=== PATIENT | male | born 1995 | race Two or more races ===

== ENCOUNTER 2021-11-08 12:56 | Emergency (ER) | payer OTHER ==
[~2021-11-08] VITALS: Ht 177.8 cm; Wt 72.6 kg
[2021-11-08] MEDS ORDERED: LIDOCAINE 1% (LOCAL ANESTH.) PF 5ml SDV ID ONE (13:15)
[2021-11-08 15:13] LABS: Basophils # (auto) 0.1 10 ^3/uL (0-0.2); Basophils % (auto) 1.3 % (0.0-2.0); Eosinophils # (auto) 0 10 ^3/uL (0-0.8); Eosinophils % (auto) 0.5 % (0.0-7.0); Hematocrit 46.5 % (41.0-53.0); Lymphocytes # (auto) 1.3 10 ^3/uL (0.4-5.4); Mean Corpuscular Hemoglobin 32.8 pg (28.0-32.0); Mean Corpuscular Hgb Conc. 34.5 g/dL (32.0-36.0); Monocytes # (auto) 0.5 10 ^3/uL (0-1.3); Monocytes % (auto) 6.9 % (0.0-12.0); Neutrophils # (auto) 4.9 10 ^3/uL (1.6-8.6); Neutrophils % (auto) 72.3 % (37.0-80.0); Nucleated Red Blood Cells % 0.2 %; Red Blood Cells 4.89 10^6/uL (4.5-5.90); Red Cell Distribution Width 13.5 % (11.8-14.3); White Blood Cell 6.8 10^3/uL (4.4-10.8)
[2021-11-08 15:29] LABS: Albumin 4.3 g/dL (3.4-5.0); Anion Gap 8 (5-15); Blood Alcohol < 3.0 mg/dL (0-5); Blood Urea Nitrogen 15 mg/dL (7-18); Calcium 8.8 mg/dL (8.5-10.1); Carbon Dioxide 27 mmol/L (21-32); Chloride 102 mmol/L (98-107); Glucose 91 mg/dL (74-106); Potassium 4.3 mmol/L (3.5-5.1); Sodium 137 mmol/L (136-145)
[2021-11-08 15:31] LABS: Salicylate < 1.7 mg/dL (2.8-20.0)
[2021-11-08 15:32] LABS: Acetaminophen < 2.0 ug/mL (10-30)
[2021-11-08 15:33] LABS: Alanine Aminotransferase 28 U/L (16-61); Alkaline Phosphatase 75 U/L (45-117); Aspartate Aminotransferase 18 U/L (15-37); Bilirubin, Total 1.2 mg/dL (0.2-1.0); GFR African American 127 mL/min; GFR Non-African American 105 mL/min; Total Protein 7.3 g/dL (6.4-8.2)
[2021-11-08] MEDS: OLANZapine 5 MG TAB PO PRN (22:23)
[2021-11-09] MEDS ORDERED: LORazepam 0.5 MG TAB PO ONE (10:00)
[2021-11-09] MEDS ORDERED: OLANZapine 5 MG TAB PO ONE (10:00)
[2021-11-11] MEDS: OLANZapine 5 MG TAB PO PRN (09:21)
[2021-11-11] MEDS ORDERED: OLANZapine 5 MG TAB PO ONE ×2 (20:00→20:45)
[2021-11-12 01:04] LABS: Alcohol, Urine 8.2 mg/dL (0-10); Amphetamine Screen, Urine NEGATIVE (NEGATIVE); Barbiturate Scree,Urine NEGATIVE (NEGATIVE); Benzodiazephine Screen, Urine NEGATIVE (NEGATIVE); Cannabinoid Screen, Urine NEGATIVE (NEGATIVE); Cocaine Screen, Urine NEGATIVE (NEGATIVE); Opiate Scree,Urine NEGATIVE (NEGATIVE); Phencyclidine Screen, Urine NEGATIVE (NEGATIVE)
[2021-11-12 02:02] VITALS: BP 110/90
== END 2021-11-11 05:27 | disposition short-term general hospital (02) ==
LOC: EDBD 12:56 → ER 12:56
DX: S61.411A Laceration without foreign body of right hand, initial encounter (principal); R45.851 Suicidal ideations; S10.91XA Abrasion of unspecified part of neck, initial encounter; Z20.822 Contact with and (suspected) exposure to COVID-19; X78.8XXA Intentional self-harm by other sharp object, initial encounter; Y93.89 Activity, other specified; Y92.89 Other specified places as the place of occurrence of the external cause; Y99.8 Other external cause status
CPT/HCPCS: 12002; 36415; 80053; 80307; 80320; 80329; 85025; 87426

== ENCOUNTER 2021-11-25 17:54 | Emergency (ER) | payer OTHER ==
[~2021-11-25] VITALS: Ht 175.3 cm; Wt 77.1 kg
[2021-11-25 17:59] VITALS: BP 140/77
== END 2021-11-25 23:35 | disposition left against medical advice (07) ==
LOC: ER 17:54
DX: F41.9 Anxiety disorder, unspecified (principal); Z53.21 Procedure and treatment not carried out due to patient leaving prior to being seen by health care provider

== ENCOUNTER 2021-11-26 07:10 | Emergency (ER) | payer OTHER ==
[~2021-11-26] VITALS: Ht 177.8 cm; Wt 65.8 kg
[2021-11-26 07:50] VITALS: BP 146/85
[2021-11-26 08:54] LABS: Amphetamine Screen, Urine NEGATIVE (NEGATIVE); Barbiturate Scree,Urine NEGATIVE (NEGATIVE); Benzodiazephine Screen, Urine NEGATIVE (NEGATIVE); Cannabinoid Screen, Urine NEGATIVE (NEGATIVE); Cocaine Screen, Urine NEGATIVE (NEGATIVE); Opiate Scree,Urine NEGATIVE (NEGATIVE); Phencyclidine Screen, Urine NEGATIVE (NEGATIVE)
== END 2021-11-26 07:57 | disposition left against medical advice (07) ==
LOC: ER 07:10 → EDBD 07:10 → ER 07:57
DX: R51.9 Headache, unspecified (principal); F15.10 Other stimulant abuse, uncomplicated; Z53.21 Procedure and treatment not carried out due to patient leaving prior to being seen by health care provider
CPT/HCPCS: 80307

== ENCOUNTER 2021-11-26 08:52 | Emergency (ER) | payer OTHER ==
[~2021-11-26] VITALS: Ht 177.8 cm; Wt 90.7 kg
[2021-11-26] MEDS ORDERED: DEXTROSE (50%) 50ML SYRG IV ONE (08:53)
[2021-11-26] MEDS ORDERED: SODIUM BICARBONATE 8.4% INJ 50ML SYRINGE IV ONE (08:53)
== END 2021-11-26 14:53 ==
LOC: ER 08:52 → EDBD 08:52 → EDUNIT# 08:52 → ER 14:53
DX: I46.9 Cardiac arrest, cause unspecified (principal); S09.90XA Unspecified injury of head, initial encounter; F20.9 Schizophrenia, unspecified; F15.10 Other stimulant abuse, uncomplicated; Z90.89 Acquired absence of other organs; V03.10XA Pedestrian on foot injured in collision with car, pick-up truck or van in traffic accident, initial encounter; Y93.89 Activity, other specified; Y92.89 Other specified places as the place of occurrence of the external cause; Y99.8 Other external cause status
CPT/HCPCS: 31500; 92950; 99285; J7042